=== PATIENT | female | born 1935 | race Caucasian/White ===

== ENCOUNTER 2017-07-04 18:00 | Observation (INO) | payer MEDICARE ==
[~2017-07-04] VITALS: Ht 170.2 cm; Wt 118.8 kg
[2017-07-04] VITALS (7 sets, daily range): BP systolic 142–176; BP diastolic 58–98; PULSE 78–85; RESP 18–20; TEMP 97.8–98.2; O2SAT 97–98
[2017-07-04] MEDS ORDERED: IOHEXOL 350 MG/ML 10 ML VIAL (for RAD DIAG) IVCONTRAST ONE (18:01)
[2017-07-04] MEDS ORDERED: SODIUM CHLORIDE 0.9% FLUSH 10 ML FLUSH IVF PRN (18:30)
[2017-07-04 18:37] LABS: AUTOMATED NEUTROPHIL # 8.6 TH/MM3 (1.8-7.7); BASOPHIL # 0.1 TH/MM3 (0-0.2); BASOPHIL % 0.8 % (0.0-2.0); EOSINOPHIL # 0.1 TH/MM3 (0-0.4); HEMATOCRIT 41.8 % (35.0-46.0); LYMPH % 20.9 % (9.0-44.0); LYMPHOCYTE # 2.6 TH/MM3 (1.0-4.8); MEAN CELL VOLUME 89.9 FL (80.0-100.0); MEAN CORPUSCULAR HEMOGLOBIN 29.5 PG (27.0-34.0); MEAN CORPUSCULAR HGB CONC 32.8 % (32.0-36.0); MONO % 7.9 % (0.0-8.0); NEUT % 69.4 % (16.0-70.0); PLATELET COUNT 286 TH/MM3 (150-450); RED BLOOD COUNT 4.65 MIL/MM3 (4.00-5.30); RED CELL DISTRIBUTION WIDTH 11.9 % (11.6-17.2); WHITE BLOOD COUNT 12.4 TH/MM3 (4.0-11.0)
[2017-07-04] MEDS ORDERED: ALDA2525 PO (18:42)
[2017-07-04] MEDS ORDERED: PROP40TA3 PO (18:42)
[2017-07-04 18:43] LABS: HEMO FLAGS DIFF FINAL
[2017-07-04] MEDS ORDERED: ONDANSETRON HCL 4 MG/2 ML VIAL IV PUSH ONE (18:45)
[2017-07-04] MEDS ORDERED: ASPIRIN 81 MG CHEW TAB CHEW ONE (18:45)
[2017-07-04 18:48] LABS: CHLORIDE 99 MEQ/L (98-107); POTASSIUM 3.9 MEQ/L (3.5-5.1); SODIUM (NA) 136 MEQ/L (136-145)
[2017-07-04 18:51] LABS: ANION GAP 8 MEQ/L (5-15); BICARBONATE 29.2 MEQ/L (21.0-32.0)
[2017-07-04 18:52] LABS: BLOOD UREA NITROGEN 38 MG/DL (7-18)
[2017-07-04 18:54] LABS: ALT (GPT) 26 U/L (10-53); APTT (PATIENT) 31.3 SEC (24.3-30.1); AST (GOT) 22 U/L (15-37); INTERNATIONAL NORMALIZED RATIO 0.9 RATIO; PROTHROMBIN TIME - PATIENT 10.2 SEC (9.8-11.6)
[2017-07-04 18:55] LABS: GLOMERULAR FILTRATION RATE 48 ML/MIN (>89)
[2017-07-04 18:56] LABS: TOTAL BILIRUBIN ADULT 0.4 MG/DL (0.2-1.0)
--- NOTE | 2017-07-04 18:56 | PD ---
HPI Chief Complaint: Edema Time Seen by Provider: 18:16 Travel History International Travel<30 days: No Contact w/Intl Traveler<30days: No Traveled to known affect area: No History of Present Illness HPI Patient is a 81 year old female who comes in complaining of "just not feeling well." She was evacuating from [place] today and was feeling fine until about 5PM. She says that when she stopped at the rest stop, she started to feel very short of breath and nauseous. She has also noted that her ankles are swollen. She also feels swelling of her abdomen. She denies any pain. She denies chest pain or abdominal pain. She has not vomited, but has just felt nauseous. She has history of hypertension, but denies other medical problems. [facility] Past Medical History Diminished Hearing: No Hypertension: Yes Tetanus Vaccination: Unknown Influenza Vaccination: No Past Surgical History Appendectomy: Yes Cholecystectomy: Yes Tonsillectomy: Yes Social History Alcohol Use: Yes (soc) Tobacco Use: No Substance Use: No Allergies-Medications (Allergen,Severity, Reaction): Coded Allergies: codeine (Verified Allergy, Severe, Nausea/Vomiting, 07/04/17) iron (Verified Allergy, Severe, Anaphylaxis, 07/04/17) shots morphine (Verified Allergy, Severe, 07/04/17) Reported Meds & Prescriptions Reported Meds & Active Scripts Active Reported Aldactazide (HCTZ/Spironolactone) 25-25 Mg Tab 1 Tab PO BIDPC Propranolol (Propranolol HCl) 40 Mg Tab 40 Mg PO TID Review of Systems Except as stated in HPI: all other systems reviewed are Neg General / Constitutional: No: Fever, Chills Eyes: No: Blurred Vision HENT: No: Headaches, Lightheadedness Cardiovascular: No: Chest Pain or Discomfort Respiratory: Positive: Shortness of Breath Gastrointestinal: Positive: Nausea, No: Vomiting, Abdominal Pain Genitourinary: No: Dysuria Musculoskeletal: Positive: Edema, No: Pain Skin: No Rash, No Change in Pigmentation Neurologic: No: Weakness, Dizziness Physical Exam Narrative GENERAL: Awake and alert, in no acute distress. SKIN: Focused skin assessment warm/dry. HEAD: Atraumatic. Normocephalic. EYES: Pupils equal and round. No scleral icterus. ENT: Mucous membranes pink and moist. NECK: Trachea midline. No JVD. CARDIOVASCULAR: Regular rate and rhythm. No murmur appreciated. RESPIRATORY: No accessory muscle use. crackles bilateral bases. Breath sounds equal bilaterally. GASTROINTESTINAL: Abdomen soft, non-tender, nondistended. MUSCULOSKELETAL: No obvious deformities. No clubbing. No cyanosis. Mild edema of bilateral ankles. NEUROLOGICAL: Awake and alert. No obvious cranial nerve deficits. Motor grossly within normal limits. Normal speech. PSYCHIATRIC: Appropriate mood and affect; insight and judgment normal. Data Data Last Documented VS Vital Signs Date Time Temp Pulse Resp B/P (MAP) Pulse Ox O2 Delivery O2 Flow Rate FiO2 07/04/17 20:25 84 18 171/65 (100) 97 Nasal Cannula 2.00 07/04/17 18:05 98.2 Orders Orders Complete Blood Count With Diff (07/04/17 18:25) Comprehensive Metabolic Panel (07/04/17 18:25) B-Type Natriuretic Peptide (07/04/17 18:25) Act Partial Throm Time (Ptt) (07/04/17 18:25) Prothrombin Time / Inr (Pt) (07/04/17 18:25) Ckmb (Isoenzyme) Profile (07/04/17 18:25) Troponin I (07/04/17 18:25) Iv Access Insert/Monitor (07/04/17 18:25) Ecg Monitoring (07/04/17 18:25) Oximetry (07/04/17 18:25) Oxygen Administration (07/04/17 18:25) Chest, Single Ap (07/04/17 18:25) Sodium Chloride 0.9% Flush (Ns Flush) (07/04/17 18:30) Aspirin Chew (Aspirin Chew) (07/04/17 18:45) Ondansetron Inj (Zofran Inj) (07/04/17 18:45) Ct Pulmonary Angiogram (07/04/17 19:25) Iohexol 350 Inj (Omnipaque 350 Inj) (07/04/17 18:01) Electrocardiogram (07/04/17 18:29) Labs Laboratory Tests Test 07/04/17 18:29 White Blood Count 12.4 TH/MM3 Red Blood Count 4.65 MIL/MM3 Hemoglobin 13.7 GM/DL Hematocrit 41.8 % Mean Corpuscular Volume 89.9 FL Mean Corpuscular Hemoglobin 29.5 PG Mean Corpuscular Hemoglobin Concent 32.8 % Red Cell Distribution Width 11.9 % Platelet Count 286 TH/MM3 Mean Platelet Volume 8.2 FL Neutrophils (%) (Auto) 69.4 % Lymphocytes (%) (Auto) 20.9 % Monocytes (%) (Auto) 7.9 % Eosinophils (%) (Auto) 1.0 % Basophils (%) (Auto) 0.8 % Neutrophils # (Auto) 8.6 TH/MM3 Lymphocytes # (Auto) 2.6 TH/MM3 Monocytes # (Auto) 1.0 TH/MM3 Eosinophils # (Auto) 0.1 TH/MM3 Basophils # (Auto) 0.1 TH/MM3 CBC Comment DIFF FINAL Differential Comment Prothrombin Time 10.2 SEC Prothromb Time International Ratio 0.9 RATIO Activated Partial Thromboplast Time 31.3 SEC Blood Urea Nitrogen 38 MG/DL Creatinine 1.10 MG/DL Random Glucose 105 MG/DL Total Protein 7.6 GM/DL Albumin 3.7 GM/DL Calcium Level 9.3 MG/DL Alkaline Phosphatase 83 U/L Aspartate Amino Transf (AST/SGOT) 22 U/L Alanine Aminotransferase (ALT/SGPT) 26 U/L Total Bilirubin 0.4 MG/DL Sodium Level 136 MEQ/L Potassium Level 3.9 MEQ/L Chloride Level 99 MEQ/L Carbon Dioxide Level 29.2 MEQ/L Anion Gap 8 MEQ/L Estimat Glomerular Filtration Rate 48 ML/MIN Total Creatine Kinase 62 U/L Troponin I LESS THAN 0.02 NG/ML B-Type Natriuretic Peptide 37 PG/ML MDM Medical Decision Making Medical Screen Exam Complete: Yes Emergency Medical Condition: Yes Medical Record Reviewed: Yes Interpretation(s) ECG shows NSR at 79, RBBB, no ST elevation or depression. Differential Diagnosis CHF versus pneumonia versus ACS versus NSTEMI Narrative Course Patient is an 81-year-old female who comes in complaining of shortness of breath , nausea, leg swelling. She also mentions she has had a lot of belching. Exam shows ankle edema as well as crackles at both bases of her lungs. IV established, labs sent. Labs show a slight elevation in her white count to 12.3. There are no other acute abnormalities. CTA of the chest shows no evidence of PE, no acute abnormalities. Patient had a low oxygen saturation on arrival, she was placed in oxygen and started to feel better. She was given aspirin and Zofran. Based on her symptoms, I feel it is best to rule out ACS at this point. She'll be placed in chest pain center. Diagnosis Primary Impression: Acute coronary syndrome Admitting Information Admitting Physician Requests: Observation Condition: Stable Svetlana Boyce MD Jul 04, 2017 18:56
[2017-07-04 18:57] LABS: ALKALINE PHOSPHATASE 83 U/L (45-117)
[2017-07-04 19:01] LABS: CREATINE KINASE 62 U/L (26-192)
--- NOTE | 2017-07-04 19:11 | RADRPT ---
EXAM DATE/TIME: 07/04/2017 18:58 [facility] COMPARISON: No previous studies available for comparison. INDICATIONS : Short of breath MEDICAL HISTORY : None. SURGICAL HISTORY : None. ENCOUNTER: Initial ACUITY: 1 day PAIN SCORE: 0/10 LOCATION: Bilateral chest FINDINGS: A single view of the chest demonstrates the lungs to be symmetrically aerated with some atelectasis/s carring in the left lingula. Lungs otherwise clear. No effusions. Heart size is borderline but well c ompensated. Osseous structures are intact. CONCLUSION: 1. Left lingular atelectasis/scarring. 2. Borderline but well compensated heart. Adiel Ware MD on July 04, 2017 at 19:08 Board Certified Radiologist. This report was verified electronically.
--- NOTE | 2017-07-04 20:47 | RADRPT ---
EXAM DATE/TIME: 07/04/2017 19:47 [facility] COMPARISON: CHEST SINGLE AP, July 04, 2017, 18:58. INDICATIONS : Nausea and shortness of breath for 1 day. IV CONTRAST: 74 cc Omnipaque 350 (iohexol) IV RADIATION DOSE: 21.65 CTDIvol (mGy) MEDICAL HISTORY : Hypertension. SURGICAL HISTORY : Tonsillectomy. Appendectomy.Cholecystectomy. ENCOUNTER: Initial ACUITY: 1 day PAIN SCALE: 0/10 LOCATION: chest TECHNIQUE: Volumetric scanning of the chest was performed using a pulmonary embolism protocol MIP images were re constructed. Using automated exposure control and adjustment of the mA and/or kV according to patien t size, radiation dose was kept as low as reasonably achievable to obtain optimal diagnostic quality images. DICOM format image data is available electronically for review and comparison. Follow-up recommendations for detected pulmonary nodules are based at a minimum on nodule size and pa tient risk factors according to Fleischner Society Guidelines. FINDINGS: PULMONARY ARTERIES: No filling defects are seen in the pulmonary arteries through the segmental level. LUNGS: Mild atelectasis or scarring in the left lingula. Lungs are otherwise clear. PLEURAE: There is no pleural thickening or pleural effusion. MEDIASTINUM: There is good visualization of the great vessels of the middle mediastinum. No evidence of mediastin al or hilar adenopathy/mass. MUSCULOSKELETAL: Within normal limits for patient age. MISCELLANEOUS: The visualized upper abdominal organs demonstrate no acute abnormality. CONCLUSION: 1. Mild atelectasis/scarring in the left lingula. Lungs are otherwise clear. 2. No PE. Adiel Ware MD on July 04, 2017 at 20:41 Board Certified Radiologist. This report was verified electronically.
[2017-07-04] MEDS ORDERED: SODIUM CHLORIDE 0.9% FLUSH 10 ML FLUSH IV FLUSH PRN (22:00)
[2017-07-04 23:08] LABS: CREATINE KINASE 71 U/L (26-192)
[2017-07-05 01:12] LABS: CREATINE KINASE 79 U/L (26-192)
[2017-07-05 04:00] VITALS: BP 139/54; PULSE 68; RESP 20; TEMP 96; O2SAT 97
[2017-07-05 08:00] VITALS: BP 147/64; PULSE 74; RESP 18; TEMP 98.5; O2SAT 96
[2017-07-05] MEDS ORDERED: SODIUM CHLORIDE 0.9% FLUSH 10 ML FLUSH IV FLUSH SCH (09:00)
[2017-07-05] MEDS ORDERED: ASPIRIN EC 325 MG TABEC PO SCH (09:00)
--- NOTE | 2017-07-05 09:42 | HHI.HP ---
[facility] No Primary Care Physician Admission Diagnosis R/O ACS Diagnoses: (1) SOB (shortness of breath) Diagnosis: Principal (2) Nausea Diagnosis: Principal (3) RBBB (right bundle branch block) Diagnosis: Principal (4) Atelectasis Diagnosis: Principal (5) Leukocytosis Diagnosis: Principal (6) BERTO (acute kidney injury) Diagnosis: Principal (7) HTN (hypertension) Diagnosis: Principal Chief Complaint: SOB, nausea Travel History International Travel<30 Days: No Contact w/Intl Traveler <30 Da: No Traveled to Known Affected Are: No History of Present Illness 81-year-old female with history of hypertension presents with complaint of shortness of breath and nausea admitted to chest pain center. The patient states that she was fine yesterday morning. She has evacuated from [place] with her son and granddaughter. She states prior to getting in the car yesterday she noticed her ankles were swollen, worse than normal. She states she had been driving in the car for about 4 hours when she started "not feeling good". She states she felt nauseated and had trouble breathing. She states they continued driving but then she felt worse and her son insisted they go to the hospital. She additionally states she felt bloated. She denies any chest pain, neck or back pain, diaphoresis, numbness or tingling in the upper extremities. Denies any abdominal pain, vomiting, or diarrhea. She states when she received oxygen in the ER and she felt much better 15 minutes later. She denies any exacerbating factors regarding her shortness of breath. She denies any recent fevers or chills, sore throat or earache. She admits to a dry cough which she has on and off associated with runny nose and watery eyes, likely allergies. She denies any history of lung disease. Aside from hypertension she has no heart disease. She has borderline diabetes which is diet controlled. She denies any increased salt in her diet recently. She does take 3 Advil per day for arthritis but denies any regurgitation, hematochezia, or melena. Feels tired "all the time'. Denies any recent dizziness, lightheadedness, blurred vision, headache. Questionable orthopnea but she has sleep apnea and uses a CPAP. She has chronic numbness and tingling in her hands when she sleeps which is not new. Denies focal weakness. Denies any dysuria, increased urine frequency, hematuria. Review of Systems Constitutional: COMPLAINS OF: Fatigue (chronic), DENIES: Diaphoretic episodes, Fever, Chills, Dizziness Eyes: DENIES: Blurred vision Ears, nose, mouth, throat: DENIES: Throat pain, Ear Pain Respiratory: COMPLAINS OF: Cough, Shortness of breath, DENIES: Sputum production Cardiovascular: COMPLAINS OF: Lower Extremity Edema, Orthopnea (possible), DENIES: Chest pain Gastrointestinal: COMPLAINS OF: Nausea, DENIES: Abdominal pain, Black stools, Bloody stools, Diarrhea, Vomiting Genitourinary: DENIES: Urinary frequency, Hematuria, Dysuria Musculoskeletal: DENIES: Back pain, Neck pain Integumentary: DENIES: Rash Neurologic: COMPLAINS OF: Paresthesias (chronic), DENIES: Headache, Localized weakness Past Family Social History Past Medical History Hypertension Patient states she has a history of rapid heart rate and was placed on Inderal years ago. Dose of Inderal was increased to tid 5-6 years ago. Osteoarthritis in knees Past Surgical History Appendectomy Cholecystectomy Tonsillectomy/Adenoidectomy Reported Medications Aldactazide (HCTZ/Spironolactone) 25-25 Mg Tab 1 Tab PO BIDPC Propranolol (Propranolol HCl) 40 Mg Tab 40 Mg PO TID Advil 200 mg tablets 600 mg po every morning taken with food Allergies: Coded Allergies: codeine (Verified Allergy, Severe, Nausea/Vomiting, 07/04/17) iron (Verified Allergy, Severe, Anaphylaxis, 07/04/17) shots morphine (Verified Allergy, Severe, 07/04/17) Family History Mother: "Plastic aorta". Father: of emphysema at the age of 67. Neither parent had a history of OK nor DM. Social History Patient states she used to drink a glass of wine with dinner daily but now it is only once in a while. Quit smoking cigarettes 40 years ago. Prior to this she smoked approximately 2 packs per day starting the age of 20, but stopped in her 30s. Denies history of illicit drug use. Physical Exam Vital Signs Vital Signs Date Time Temp Pulse Resp B/P (MAP) Pulse Ox O2 Delivery O2 Flow Rate FiO2 07/05/17 08:00 98.5 74 18 147/64 (91) 96 07/05/17 04:00 96.0 68 20 139/54 (82) 97 07/04/17 23:00 97.8 79 20 142/70 (94) 97 07/04/17 23:00 97 Nasal Cannula 2.00 07/04/17 23:00 78 07/04/17 22:55 83 18 169/98 (121) 95 Nasal Cannula 2.00 07/04/17 21:33 85 18 144/58 (86) 97 Nasal Cannula 2.00 07/04/17 20:25 84 18 171/65 (100) 97 Nasal Cannula 2.00 07/04/17 19:12 78 18 98 Nasal Cannula 2.00 07/04/17 19:12 78 18 176/71 (106) 98 Nasal Cannula 2.00 07/04/17 18:35 97 Nasal Cannula 2.00 07/04/17 18:35 97 07/04/17 18:35 85 18 94 Room Air 07/04/17 18:05 98.2 82 20 169/81 (110) Physical Exam GENERAL: This is an obese, well-developed patient, in no apparent distress. SKIN: Warm and dry. HEAD: Atraumatic. Normocephalic. EYES: No scleral icterus. No injection or drainage. NECK: Trachea midline. CARDIOVASCULAR: Regular rate and rhythm without murmurs, gallops, or rubs. RESPIRATORY: Bibasilar crackles but otherwise clear. O2 via NC. Patient removed NC and is breathing normally. GASTROINTESTINAL: Abdomen soft, non-tender, nondistended. No guarding. MUSCULOSKELETAL: Trace to mild pitting pretibial edema bilaterally with ankle swelling bilaterally. NEUROLOGICAL: Awake and alert. Motor grossly within normal limits. Normal speech. PSYCHIATRIC: Normal mood and affect. Normal insight and judgement. Laboratory Laboratory Tests Test 07/04/17 18:29 07/04/17 22:25 07/05/17 00:03 White Blood Count 12.4 Red Blood Count 4.65 Hemoglobin 13.7 Hematocrit 41.8 Mean Corpuscular Volume 89.9 Mean Corpuscular Hemoglobin 29.5 Mean Corpuscular Hemoglobin Concent 32.8 Red Cell Distribution Width 11.9 Platelet Count 286 Mean Platelet Volume 8.2 Neutrophils (%) (Auto) 69.4 Lymphocytes (%) (Auto) 20.9 Monocytes (%) (Auto) 7.9 Eosinophils (%) (Auto) 1.0 Basophils (%) (Auto) 0.8 Neutrophils # (Auto) 8.6 Lymphocytes # (Auto) 2.6 Monocytes # (Auto) 1.0 Eosinophils # (Auto) 0.1 Basophils # (Auto) 0.1 CBC Comment DIFF FINAL Differential Comment Prothrombin Time 10.2 Prothromb Time International Ratio 0.9 Activated Partial Thromboplast Time 31.3 Blood Urea Nitrogen 38 Creatinine 1.10 Random Glucose 105 Total Protein 7.6 Albumin 3.7 Calcium Level 9.3 Alkaline Phosphatase 83 Aspartate Amino Transf (AST/SGOT) 22 Alanine Aminotransferase (ALT/SGPT) 26 Total Bilirubin 0.4 Sodium Level 136 Potassium Level 3.9 Chloride Level 99 Carbon Dioxide Level 29.2 Anion Gap 8 Estimat Glomerular Filtration Rate 48 Total Creatine Kinase 62 71 79 Troponin I LESS THAN 0.02 LESS THAN 0.02 LESS THAN 0.02 B-Type Natriuretic Peptide 37 Result Diagram: 07/04/17182807/04/171828 [address] Angiography 07/04/171924 Signed Impressions: Service Date/Time: June 19:47 - CONCLUSION: 1. Mild atelectasis/scarring in the left lingula. Lungs are otherwise clear. 2. No PE. Adiel Ware MD Chest X-Ray 07/04/171824 Signed Impressions: Service Date/Time: June 18:58 - CONCLUSION: 1. Left lingular atelectasis/scarring. 2. Borderline but well compensated heart. Adiel Ware MD Caprini VTE Risk Assessment Caprini VTE Risk Assessment: Mod/High Risk (score >= 2) Caprini Risk Assessment Model Point Value = 1 Point Value = 2 Point Value = 3 Point Value = 5 Age 41-60 Minor surgery BMI > 25 kg/m2 Swollen legs Varicose veins or History of unexplained or recurrent spontaneous Oral contraceptives or hormone replacement Sepsis (< 1 month) Serious lung disease, including pneumonia (< 1 month) Abnormal pulmonary function Acute myocardial infarction Congestive heart failure (< 1 month) History of inflammatory bowel disease Medical patient at bed rest Age 61-74 Arthroscopic surgery Major open surgery (> 45 min) Laparoscopic surgery (> 45 min) Malignancy Confined to bed (> 72 hours) Immobilizing plaster cast Central venous access Age >= 75 History of VTE Family history of VTE Factor V Leiden Prothrombin [id number] Lupus anticoagulant Anticardiolipin antibodies Elevated serum homocysteine Heparin-induced thrombocytopenia Other congenital or acquired thrombophilia Stroke (< 1 month) Elective arthroplasty Hip, pelvis, or leg fracture Acute spinal cord injury (< 1 month) Prophylaxis Regimen Total Risk Factor Score Risk Level Prophylaxis Regimen 0-1 Low Early ambulation 2 Moderate Order ONE of the following: *Sequential Compression Device (SCD) *Heparin 5000 units SQ BID 3-4 Higher Order ONE of the following medications: *Heparin 5000 units SQ TID *Enoxaparin/Lovenox 40 mg SQ daily (WT < 150 kg, CrCl > 30 mL/min) *Enoxaparin/Lovenox 30 mg SQ daily (WT < 150 kg, CrCl > 10-29 mL/min) *Enoxaparin/Lovenox 30 mg SQ BID (WT < 150 kg, CrCl > 30 mL/min) AND/OR *Sequential Compression Device (SCD) 5 or more Highest Order ONE of the following medications: *Heparin 5000 units SQ TID (Preferred with Epidurals) *Enoxaparin/Lovenox 40 mg SQ daily (WT < 150 kg, CrCl > 30 mL/min) *Enoxaparin/Lovenox 30 mg SQ daily (WT < 150 kg, CrCl > 10-29 mL/min) *Enoxaparin/Lovenox 30 mg SQ BID (WT < 150 kg, CrCl > 30 mL/min) AND *Sequential Compression Device (SCD) Assessment and Plan Assessment and Plan 81-year-old female with: Shortness of breath and nausea: In light of age, gender, and symptoms, patient admitted to rule out ACS. EKGs 3 personally interpreted with normal sinus rhythm, right bundle branch block, no evidence of ischemia. There are no prior EKGs for comparison so it is unknown if the right bundle branch block is new. CK and troponin 3 unremarkable. Patient has bibasilar crackles and lower extremity edema bilaterally on exam but BNP is normal and patient, although had improvement with O2 symptomatically, has normal saturation on room air. Chest x- ray personally interpreted with borderline enlarged heart; appears to be hazy at the bases bilaterally, but radiologist only indicates left lingular atelectasis/scarring. CTA also shows the same atelectasis but otherwise clear lungs, and no evidence of pulmonary embolus. -Patient received 162 mg of aspirin in the ED. -Telemetry reviewed with no acute events -No evidence of acute heart failure based on labs and x-ray, but could consider Echo. -Patient was advised to undergo a nuclear stress test, and if positive she would likely need a heart catheterization. The patient states she would normally desire to undergo the stress test but considering she is trying to evacuate she would like to leave and does not want the stress test performed here. She inquires if she can obtain a stress test at a later date. I told her she can get a stress test outpatient, but she is informed that if she leaves without getting one performed here she could be at risk of OK or as workup is not complete and I cannot ensure that everything is ok with her heart. Patient was informed that she has a right bundle branch block. Leukocytosis: Mild 12.4. Likely stress reaction. The patient admits to a dry cough, runny nose, watery eyes at times but this appears to be likely allergy related. She has crackles at the lung bases, but imaging does not reveal any pneumonia. No other infectious symptoms reported. BERTO: BUN/creatinine 38/1.10. No prior labs for comparison. Appears to be prerenal, possibly dehydrated, and patient is also on diuretic for hypertension which could have renal effects. -Patient was informed of results and informed Aldactazide could affect her kidneys. She understands. She was informed these labs have not been rechecked this morning to assess for improvement, but she desires to sign out AMA. HTN: Patient's systolic blood pressure initially in the 160s and 170s. Still elevated but improved this morning. -Continue home propranolol. -Hold Aldactazide for now. Patient was informed of risks of leaving AGAINST MEDICAL ADVICE as above. She is advised to return to a hospital if she has any worsening shortness of breath or develops chest pain. She understands. Discussed Condition With patient and her son Maribell Abreu SHELLY Jul 05, 2017 09:42
--- NOTE | 2017-07-05 11:37 | EKG ---
Date Performed: 07/04/2017 Time Performed: 22:00:56 PTAGE: 81 years EKG: Sinus rhythm RIGHT BUNDLE BRANCH BLOCK ABNORMAL ECG PREVIOUS TRACING : 07/04/2017 18.29 No significant change from previous tracing noted. DOCTOR: Jose Jo Interpretating Date/Time 07/05/2017 11:35:38
--- NOTE | 2017-07-05 11:42 | EKG ---
Date Performed: 07/04/2017 Time Performed: 18:29:57 PTAGE: 81 years EKG: Sinus rhythm RIGHT BUNDLE BRANCH BLOCK ABNORMAL ECG NO PREVIOUS TRACING DOCTOR: Jose Jo Interpretating Date/Time 07/05/2017 11:40:17
--- NOTE | 2017-07-06 13:36 | EKG ---
Date Performed: 07/05/2017 Time Performed: 10:14:29 PTAGE: 81 years EKG: Sinus rhythm RIGHT BUNDLE BRANCH BLOCK Compared to prior tracing no significant change ABNORMAL ECG PREVIOUS TRACING : 07/04/2017 22.00 DOCTOR: Sanjeev Salguero Interpretating Date/Time 07/06/2017 13:35:29
== END 2017-07-05 11:17 | disposition left against medical advice (07) ==
LOC: PHED 18:00 → PHEDA 21:50 → PH3A 22:58
PROVIDERS: ADMIT Family Medicine; ATTEND Family Medicine
DX: R06.02 Shortness of breath (principal); I45.10 Unspecified right bundle-branch block; J98.11 Atelectasis; D72.829 Elevated white blood cell count, unspecified; N17.9 Acute kidney failure, unspecified; I10 Essential (primary) hypertension; M17.0 Bilateral primary osteoarthritis of knee; Z87.891 Personal history of nicotine dependence
CPT/HCPCS: 71010; 71275; 80053; 82550; 83880; 84484; 85025; 85610; 85730; 93005; 99285; G0378; Q9967